=== PATIENT | female | born 1970 | race Caucasian/White ===

== ENCOUNTER 2018-08-24 16:37 | Emergency (ER) | payer MEDICAID ==
[~2018-08-24] VITALS: Ht 152.4 cm; Wt 58.2 kg
[~2018-08-24 16:37] MED LIST: LANTUS INSULIN; METF1000 PO
[2018-08-24] MEDS ORDERED: CEPH500 PO (17:13)
[2018-08-24] MEDS ORDERED: CefTRIAXone SODIUM 1 GM/VIAL IM ONE (17:30)
[2018-08-24] MEDS ORDERED: HYDROCODONE/ACETAMINOPHEN 10-325 MG TABLET PO ONE (17:30)
[2018-08-24] MEDS ORDERED: LIDOCAINE/PF 1% 2 ML VIAL IM ONE (17:30)
[2018-08-24 20:00] VITALS: BP 132/68
== END 2018-08-24 20:06 | disposition home or self-care (01) ==
LOC: EMS 16:38
DX: N73.2 Unspecified parametritis and pelvic cellulitis (principal); R19.00 Intra-abdominal and pelvic swelling, mass and lump, unspecified site; E11.9 Type 2 diabetes mellitus without complications; Z79.84 Long term (current) use of oral hypoglycemic drugs
CPT/HCPCS: 82962; 96372; 99283; J0696; J3490

== ENCOUNTER 2018-09-11 09:20 | Emergency (ER) | payer MEDICAID ==
[~2018-09-11] VITALS: Ht 149.9 cm; Wt 58.2 kg
[~2018-09-11 09:20] MED LIST changes: +CEPH500 PO; -LANTUS INSULIN
[2018-09-11 09:47] LABS: GLUCOSE,POINT OF CARE 340 MG/DL (70-110)
[2018-09-11 10:10] LABS: BASOPHILS % (AUTO) 0.3 % (0.0-2.0); EOSINOPHILS % (AUTO) 1.8 % (1.0-6.0); HEMATOCRIT 38.9 % (36-46); HEMOGLOBIN 13.5 g/dL (12.0-16.0); LYMPHOCYTES # (AUTO) 1.8 K/uL (1.0-4.8); LYMPHOCYTES % (AUTO) 19.2 % (22.0-44.0); MEAN CORPUSCULAR HEMOGLOBIN 32.9 pg (26.0-34.0); MEAN CORPUSCULAR HGB CONC 34.6 G/dL (31.0-37.0); MEAN CORPUSCULAR VOLUME 95 fL (80-100); MONOCYTES # (AUTO) 0.5 K/uL (0.1-1.0); NEUTROPHILS % (AUTO) 73.7 % (40.0-70.0); PLATELET COUNT (AUTO) 277 K/uL (150-450); RED CELL DISTRIBUTION WIDTH 12.2 % (11.5-14.5)
[2018-09-11 10:17] LABS: APPEARANCE,URINE CLEAR (CLEAR); BILIRUBIN,URINE NEGATIVE (NEGATIVE); GLUCOSE, URINE (UA) >=1000 mg/dL (NEGATIVE); KETONES,URINE TRACE mg/dL (NEGATIVE); LEUKOCYTE ESTERASE ,URINE NEGATIVE (NEGATIVE); NITRATE,URINE NEGATIVE (NEGATIVE); OCCULT BLOOD,URINE NEGATIVE (NEGATIVE); PROTEIN,URINE NEGATIVE (NEGATIVE); UROBILINOGEN,URINE 0.2 mg/dL (<=1.0)
[2018-09-11 10:21] LABS: ACETONE,BLOOD NEGATIVE (NEGATIVE)
[2018-09-11 10:25] LABS: ALANINE AMINOTRANSFERASE 19 U/L (12-78); ALBUMIN 3.9 g/dL (3.4-5.0); ALKALINE PHOSPHATASE 118 U/L (46-116); ANION GAP 7 mmol/L (8-16); ASPARTATE AMINOTRANSFERASE 12 U/L (15-37); BILIRUBIN,TOTAL 0.5 mg/dL (0.1-1.0); CALCIUM, TOTAL 9.5 mg/dL (8.8-10.5); CARBON DIOXIDE 27 mmol/L (22-29); CHLORIDE 102 mmol/L (98-107); CREATININE 0.62 mg/dL (0.60-1.30); GLOMERULAR FILTR. RATE CALC > 60 mL/min (>60); GLUCOSE,RANDOM 356 mg/dL (70-110); POTASSIUM 4.4 mmol/L (3.5-5.1); SODIUM SERUM 136 mmol/L (136-145); TOTAL PROTEIN, SERUM 7.2 g/dL (6.4-8.2); UREA NITROGEN, BLOOD 13 mg/dL (7-18)
[2018-09-11 10:34] LABS: BACTERIA,URINE Moderate /HPF (None Seen); RBC,URINE None Seen /HPF (0-2); SQUAMOUS EPITHELIAL CELL,UR Moderate /LPF (None Seen)
[2018-09-11] MEDS ORDERED: LIDOCAINE 2% 5 ML JELLY TP ONE (11:45)
[2018-09-11] MEDS ORDERED: LIDOCAINE 1% 10 ML VIAL INJ ONE (11:45)
[2018-09-11] MEDS ORDERED: POVIDONE-IODINE 10% 15 ML SOLUTION UD ONE (12:16)
[2018-09-11 13:06] VITALS: BP 135/86
== END 2018-09-11 13:48 | disposition home or self-care (01) ==
LOC: EMS 09:21
DX: L02.215 Cutaneous abscess of perineum (principal); E11.65 Type 2 diabetes mellitus with hyperglycemia; Z86.19 Personal history of other infectious and parasitic diseases; Z79.899 Other long term (current) drug therapy
CPT/HCPCS: 10060; 36415; 80053; 81001; 82009; 82962; 84703; 85025; 87086; 99283; J3490

== ENCOUNTER 2018-09-13 12:05 | Emergency (ER) | payer MEDICAID ==
[~2018-09-13] VITALS: Ht 147.3 cm; Wt 47.7 kg
[2018-09-13 12:24] LABS: GLUCOSE,POINT OF CARE 161 MG/DL (70-110)
[2018-09-13 13:27] VITALS: BP 121/78
== END 2018-09-13 14:01 | disposition home or self-care (01) ==
LOC: EMS 12:06
DX: L02.215 Cutaneous abscess of perineum (principal); E11.9 Type 2 diabetes mellitus without complications; Z48.00 Encounter for change or removal of nonsurgical wound dressing; Z79.84 Long term (current) use of oral hypoglycemic drugs